=== PATIENT | male | born 1965 | race Caucasian/White ===

== ENCOUNTER → 2019-05-06 | Outpatient (CLI) | payer BC ==
--- NOTE | 2019-05-06 22:01 | CONS ---
CONSULTATION DATE OF SERVICE: 05/06/2019 54-year-old gentleman who has been [facility] for obstructive sleep apnea-hypopnea syndrome. HISTORY OF PRESENT ILLNESS/SLEEP WAKE EVALUATION: Patient had been diagnosed with obstructive sleep apnea more than 10 years ago. Since that time, he is on treatment with CPAP, then he had a period of time then he did not use the CPAP. Then he started to use it again. Last time he stopped using the CPAP several months ago because he lost some weight and also he developed some sneezing while using his CPAP equipment. 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 SLEEP SCHEDULE: Subsequently his sleep schedule on working days from 6:00 am until 1:20 pm and on weekends from 5:00 am until 12 noon. FALLING ASLEEP: No problems with falling asleep. No TV in bedroom. DURING SLEEP: Patient usually stays on the back position. Without machine he snores and wakes up from sleep with nocturia, although now it is better than before after he lost weight. He has episodes of heartburn. DURING THE DAY/SLEEP WAKE EVALUATION: In the morning patient wakes up tired, has difficulties to pay attention, has problems with memory, concentration, sexual dysfunction, and for sleepiness. Cowdrey Sleepiness Scale is 6. While patient using Nuvigil 200 mg taking it before the working hours for the mine shifter. No history of hypnagogic hallucinations, sleep paralysis or cataplexy. PAST MEDICAL HISTORY: Positive for hypertension, hypothyroidism, acid reflux, depression, anxiety, retinal detachment. PAST SURGICAL HISTORY: Surgery for right rotator cuff problems, left knee arthroscopic, retina detachment. CURRENT MEDICATIONS: Lamictal, Effexor, levothyroxine, lisinopril, omeprazole, Nuvigil, B12, fish oil, D3, multivitamins, vitamin E. SOCIAL HISTORY: Negative for smoking. Alcohol consumption occasional. FAMILY HISTORY: Hypertension, arthritis, sinus problems, sleep apnea, cancer, nasal polyps, thyroid problems, mental illness. REVIEW OF SYSTEMS: Awakenings from sleep, snoring, sleepiness during the day. I checked patient's CPAP unit. CPAP pressure is 8.2 cm of water. The patient did not use equipment for the last several months. For the last year, he used it 227 nights and 210 nights more than 4 hours with average usage 5.7 hours per night. Leak is quite high at 37 L/minute for nasal pillow mask. Apnea-hypopnea index reading only 1.3, which is normal. Again, the patient did not use machine for the last 4 months. PHYSICAL EXAM: A gentleman without distress BP 116/77, HR 82, RR 16, height 6 feet 1 inch, weight 206.6 pounds, body mass index 26.8, temperature 97.8, oxygen saturation at room air 98%. Oropharynx: Low position of soft palate, Mallampati 3-4. Some restriction of nasal breathing. Neck 16 inches in circumference. Deviation of right eye to the sight, decreased vision on the right side. NECK: Supple, no JVD. Thyroid is not palpable. LUNGS: Clear to percussion and to auscultation. Good air exchange. No wheezing or rhonchi. HEART: S1, S2 regular. No murmurs, gallops, or rubs. ABDOMEN: Soft and nontender. Bowel sounds are present. No organomegaly appreciated. EXTREMITIES: No clubbing or cyanosis. SALON ASSISTANT: Awake, alert, and oriented X3. Cranial nerves 2 to 7 intact. There is no fasciculation or atrophy. noted. No focal deficits observed. IMPRESSION: 1. History of obstructive sleep apnea for more than 10 years. The patient stopped using CPAP equipment about 4 months ago after losing weight with a trial of using machine developed sneezing, low position of soft palate, restriction of nasal breathing; obstructive sleep apnea-hypopnea syndrome. 2. Slight overweight presently, the patient lost about 30 pounds. 3. Hypertension. 4. Hypothyroidism. 5. Acid reflux. 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 7. Depression. 8. Anxiety. 9. Status post right rotator cuff surgery. 10.Left status post left knee arthroscopic surgery. 11.Status post surgery for retinal detachment on right eye. 12.Deviation of right eye to the sight, decreasing vision on the right side. PLAN: 1. Home sleep apnea test to confirm obstructive sleep apnea-hypopnea syndrome after losing weight. 2. Prescription for all necessary CPAP supplies including Maza FX nasal pillow mask, heated tube, filters and humidifier chamber. 3. Losing weight. 4. Sleep hygiene with regular time in bed for at least 7 and one half to 8 hours. 5. Precautions related to driving. No driving if feeling sleepiness. Thank you very much for referring this patient for consultation. Sincerely, Chandrakant Murillo MD, PhD, FAASM Diplomat of [place] [employer] [place] [employer] [facility] [place] MMROSANGELAL / ED: [id number] /
== END | disposition home or self-care (01) ==
LOC: SLEEP 13:32
PROVIDERS: ATTEND Internal Medicine
DX: G47.33 Obstructive sleep apnea (adult) (pediatric) (principal); R06.7 Sneezing; E66.3 Overweight; I10 Essential (primary) hypertension; E03.9 Hypothyroidism, unspecified; K21.9 Gastro-esophageal reflux disease without esophagitis; F41.8 Other specified anxiety disorders; H57.89 Other specified disorders of eye and adnexa; Z98.890 Other specified postprocedural states; Z68.26 Body mass index [BMI] 26.0-26.9, adult; Z79.899 Other long term (current) drug therapy; Z83.6 Family history of other diseases of the respiratory system
CPT/HCPCS: 99201

== ENCOUNTER 2019-07-26 02:28 | Inpatient (IN) | payer BC ==
[2019-07-26] MEDS ORDERED: FAMOTIDINE 20 MG/2 ML VIAL IV STA (02:52)
[2019-07-26] MEDS ORDERED: PANTOPRAZOLE 40 MG/10 ML VIAL IVP STA (02:52)
--- NOTE | 2019-07-26 02:52 | ED ---
GI Bleed HPI - General Chief complaint: GI Bleed Stated complaint: blood in stool Time Seen by Provider: 07/26/19 02:36 Source: patient, EMS Mode of arrival: EMS Limitations: no limitations - History of Present Illness Initial comments: This patient is 54-year-old man who presents to be evaluated for rectal bleeding. Patient states that around 11 PM he had a bowel movement with some dark red blood. Patient states she was not having abdominal pain nor any perianal pain. Denies history of similar. MD complaint: melena Onset/Timin -: hour(s) Quality: painless Improves with: none Worsens with: none Associated Symptoms: denies other symptoms Treatments Prior to Arrival: none - Related Data Allergies Allergy/AdvReac Type Severity Reaction Status Date / Time No Known Allergies Allergy Verified 07/26/19 02:39 Review of Systems ROS Statement: Those systems with pertinent positive or pertinent negative responses have been documented in the HPI. ROS Other: All systems not noted in ROS Statement are negative. Constitutional: Denies: fever, chills Respiratory: Denies: cough, dyspnea Cardiovascular: Denies: chest pain, palpitations, orthopnea, syncope Gastrointestinal: Reports: melena. Denies: abdominal pain, nausea, vomiting, diarrhea, constipation, hematochezia Genitourinary: Denies: dysuria, hematuria Musculoskeletal: Denies: back pain Skin: Denies: rash Neurological: Denies: headache, weakness Hematological/Lymphatic: Denies: easy bleeding Past Medical History Past Medical History: GERD/Reflux, Hypertension, Thyroid Disorder History of Any Multi-Drug Resistant Organisms: None Reported Past Surgical History: Orthopedic Surgery Additional Past Surgical History / Comment(s): right eye surgery Past Psychological History: Anxiety, Depression Smoking Status: Former smoker Past Alcohol Use History: None Reported Past Drug Use History: None Reported General Exam Limitations: no limitations General appearance: alert, in no apparent distress Head exam: Present: atraumatic, normocephalic Eye exam: Present: normal appearance. Absent: scleral icterus, conjunctival injection ENT exam: Present: normal oropharynx Neck exam: Present: normal inspection Respiratory exam: Present: normal lung sounds bilaterally. Absent: respiratory distress, wheezes, rales, rhonchi, stridor Cardiovascular Exam: Present: regular rate, normal rhythm, normal heart sounds. Absent: systolic murmur, diastolic murmur, rubs, gallop GI/Abdominal exam: Present: soft. Absent: distended, tenderness, guarding, rebound, rigid, mass, pulsatile mass Rectal exam: Present: normal inspection, normal rectal tone, bloody stool, normal prostate. Absent: fecal impaction, hemorrhoids, mass, tenderness Extremities exam: Present: normal inspection, normal capillary refill. Absent: pedal edema, calf tenderness Back exam: Present: normal inspection. Absent: CVA tenderness (R), CVA tenderness (L) Neurological exam: Present: alert Skin exam: Present: warm, dry, intact, normal color. Absent: rash Course Vital Signs 07/26/19 02:29 Temperature 98.6 F Pulse Rate 90 Respiratory 19 Rate Blood Pressure 113/79 O2 Sat by Pulse 98 Oximetry Medical Decision Making - Lab Data Result diagrams: 07/26/19 02:33 07/26/19 02:33 Lab Results 07/26/19 07/26/19 07/26/19 Range/Units 02:33 02:33 02:33 WBC 6.1 (3.8-10.6) k/uL RBC 3.98 L (4.30-5.90) m/uL Hgb 12.2 L (13.0-17.5) gm/dL Hct 35.4 L (39.0-53.0) % MCV 88.8 (80.0-100.0) fL MCH 30.7 (25.0-35.0) pg MCHC 34.5 (31.0-37.0) g/dL RDW 12.7 (11.5-15.5) % Plt Count 174 (150-450) k/uL Neutrophils % 62 % Lymphocytes % 27 % Monocytes % 6 % Eosinophils % 3 % Basophils % 1 % Neutrophils # 3.8 (1.3-7.7) k/uL Lymphocytes # 1.6 (1.0-4.8) k/uL Monocytes # 0.4 (0-1.0) k/uL Eosinophils # 0.2 (0-0.7) k/uL Basophils # 0.0 (0-0.2) k/uL PT 11.6 (9.0-12.0) sec INR 1.1 (<1.2) APTT 20.8 L (22.0-30.0) sec Sodium 132 L (137-145) mmol/L Potassium 4.2 (3.5-5.1) mmol/L Chloride 103 (98-107) mmol/L Carbon Dioxide 22 (22-30) mmol/L Anion Gap 7 mmol/L BUN 37 H (9-20) mg/dL Creatinine 0.85 (0.66-1.25) mg/dL Est GFR (CKD-EPI)AfAm >90 (>60 ml/min/1.73 sqM) Est GFR (CKD-EPI)NonAf >90 (>60 ml/min/1.73 sqM) Glucose 153 H (74-99) mg/dL Calcium 8.1 L (8.4-10.2) mg/dL Total Bilirubin 0.4 (0.2-1.3) mg/dL AST 23 (17-59) U/L ALT 16 (4-49) U/L Alkaline Phosphatase 47 (38-126) U/L Troponin I (0.000-0.034) ng/mL Total Protein 5.5 L (6.3-8.2) g/dL Albumin 3.2 L (3.5-5.0) g/dL Stool Occult Blood (Negative) 07/26/19 07/26/19 Range/Units 02:33 02:45 WBC (3.8-10.6) k/uL RBC (4.30-5.90) m/uL Hgb (13.0-17.5) gm/dL Hct (39.0-53.0) % MCV (80.0-100.0) fL MCH (25.0-35.0) pg MCHC (31.0-37.0) g/dL RDW (11.5-15.5) % Plt Count (150-450) k/uL Neutrophils % % Lymphocytes % % Monocytes % % Eosinophils % % Basophils % % Neutrophils # (1.3-7.7) k/uL Lymphocytes # (1.0-4.8) k/uL Monocytes # (0-1.0) k/uL Eosinophils # (0-0.7) k/uL Basophils # (0-0.2) k/uL PT (9.0-12.0) sec INR (<1.2) APTT (22.0-30.0) sec Sodium (137-145) mmol/L Potassium (3.5-5.1) mmol/L Chloride (98-107) mmol/L Carbon Dioxide (22-30) mmol/L Anion Gap mmol/L BUN (9-20) mg/dL Creatinine (0.66-1.25) mg/dL Est GFR (CKD-EPI)AfAm (>60 ml/min/1.73 sqM) Est GFR (CKD-EPI)NonAf (>60 ml/min/1.73 sqM) Glucose (74-99) mg/dL Calcium (8.4-10.2) mg/dL Total Bilirubin (0.2-1.3) mg/dL AST (17-59) U/L ALT (4-49) U/L Alkaline Phosphatase (38-126) U/L Troponin I <0.012 (0.000-0.034) ng/mL Total Protein (6.3-8.2) g/dL Albumin (3.5-5.0) g/dL Stool Occult Blood Positive (Negative) Disposition Clinical Impression: Gastrointestinal hemorrhage, Anemia Disposition: ADMITTED IP TO THIS HOSP Condition: Good Is patient prescribed a controlled substance at d/c from ED?: No Referrals: Dm Brown MD [Primary Care Provider] - 1-2 days
[2019-07-26 03:13] LABS: Basophils % (A) 1 %; Eosinophils # (A) 0.2 k/uL (0-0.7); Eosinophils % (A) 3 %; HCT 35.4 % (39.0-53.0); HGB 12.2 gm/dL (13.0-17.5); Lymphocytes # (A) 1.6 k/uL (1.0-4.8); Lymphocytes % (A) 27 %; MCH 30.7 pg (25.0-35.0); MCHC 34.5 g/dL (31.0-37.0); MCV 88.8 fL (80.0-100.0); Mean Platelet Volume 9.7; Monocytes # (A) 0.4 k/uL (0-1.0); Monocytes % (A) 6 %; Neutrophils # (A) 3.8 k/uL (1.3-7.7); Neutrophils % (A) 62 %; Platelet Count 174 k/uL (150-450); RBC 3.98 m/uL (4.30-5.90); RDW 12.7 % (11.5-15.5); WBC 6.1 k/uL (3.8-10.6)
[2019-07-26 03:24] LABS: INR 1.1 (<1.2); Prothrombin Time 11.6 sec (9.0-12.0)
[2019-07-26 03:36] LABS: Partial Thromboplastin Time 20.8 sec (22.0-30.0)
[2019-07-26 03:43] LABS: ALT 16 U/L (4-49); AST 23 U/L (17-59); African American GFR (CKD) >90 (>60 ml/min/1.73 sqM); Albumin 3.2 g/dL (3.5-5.0); Alkaline Phosphatase 47 U/L (38-126); Anion Gap 7 mmol/L; Blood Urea Nitrogen 37 mg/dL (9-20); Calcium 8.1 mg/dL (8.4-10.2); Carbon Dioxide 22 mmol/L (22-30); Chloride 103 mmol/L (98-107); Glucose 153 mg/dL (74-99); Non-African American GFR(CKD) >90 (>60 ml/min/1.73 sqM); Potassium 4.2 mmol/L (3.5-5.1); Sodium 132 mmol/L (137-145); Total Bilirubin 0.4 mg/dL (0.2-1.3); Total Protein 5.5 g/dL (6.3-8.2)
[2019-07-26] MEDS ORDERED: ONDANSETRON 4 MG/2 ML VIAL IVP PRN (04:21)
[2019-07-26] MEDS ORDERED: NALOXONE 0.4 MG/ML 1 ML VIAL IV PRN (04:21)
[2019-07-26] MEDS ORDERED: ACETAMINOPHEN TAB 325 MG TAB PO PRN (04:21)
[2019-07-26] MEDS: SODIUM CHLORIDE 0.9% 1,000 ML IV SCH ×3 (04:35→20:21)
--- NOTE | 2019-07-26 06:41 | P.HPIM ---
History of Present Illness H&P Date: 07/26/19 Chief Complaint: Rectal bleeding 54-year-old male with hypertension, RYAN Patient comes in due to sudden onset GI bleeding patient noticed dark bloody bowel movement. he reports short lived one episode of abd pain , right loin sharp discomfort , 8/10 in severity non radiating, only felt once. 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 after which he felt dizzy and sweaty and decided to come to the hospital . he had another episode of bleeding this morning after he arrived to the floor. . Reports that this has never happened before. Denies any nausea vomiting . Denies being on any blood thinners. or NSAIDs. Denies any recent changes in his medications. Patient denies any fevers chills chest pain or trou ble breathing or palpitations. In the ED patient was found to be mild anemia admitted for further evaluation Review of Systems Pertinent positives as noted in HPI. All other systems were reviewed and are negative Past Medical History Past Medical History: GERD/Reflux, Hypertension, Thyroid Disorder History of Any Multi-Drug Resistant Organisms: None Reported Past Surgical History: Orthopedic Surgery Additional Past Surgical History / Comment(s): right eye surgery Past Anesthesia/Blood Transfusion Reactions: No Reported Reaction Past Psychological History: Anxiety, Depression Smoking Status: Never smoker Past Alcohol Use History: None Reported Past Drug Use History: None Reported - Past Family History family Family Medical History: No Reported History Medications and Allergies Allergies Allergy/AdvReac Type Severity Reaction Status Date / Time No Known Allergies Allergy Verified 07/26/19 02:39 Physical Exam Vitals: Vital Signs Temp Pulse Pulse Resp BP BP Pulse Ox 07/26/19 05:29 98.7 F 79 18 100/66 97 07/26/19 04:27 97.5 F L 86 17 119/76 98 07/26/19 02:29 98.6 F 90 19 113/79 98 Intake and Output 07/25/19 07/25/19 07/26/19 14:59 22:59 06:59 Other: Weight 96.615 kg Constitutional: No acute distress, conversant, pleasant Eyes: Anicteric sclerae, moist conjunctiva, Pupils equal round reactive to light ENMT: NC/AT Oropharynx clear, no erythema, or exudates Neck: Supple, FROM, no masses, or JVD No carotid bruits No thyromegaly Lungs: Clear to auscultation Clear to percussion Normal respiratory effort, no accessory muscle use Cardiovascular: Heart regular in rate and rhythm, No murmurs, gallops, or rubs No peripheral edema Abdominal: Soft Nontender, no guarding, rebound or rigidity Abdomen moving with respiration Normoactive bowel sounds No hepatomegaly, No splenomegaly No palpable mass No abdominal wall hernia noted Skin: Normal temperature, tone, texture, turgor No induration No subcutaneous nodules No rash, lesions No ulcers Extremities: No digital cyanosis No clubbing Pedal pulses intact and symmetrical Radial pulses intact and symmetrical No calf tenderness Psychiatric: Alert and oriented to person, place and time Appropriate affect fair judgement Neuro Muscles Strength 5/5 in all 4 extremities Sensation to light touch grossly present throughout Cranial nerves II-XII grossly intact No focal sensory deficits Lymphatics: no palpable cervical or supraclavicular , or inguinal lymph nodes Results CBC & Chem 7: 07/26/19 02:33 07/26/19 02:33 Labs: Abnormal Lab Results - Last 24 Hours (Table) 07/26/19 07/26/19 07/26/19 Range/Units 02:33 02:33 02:33 RBC 3.98 L (4.30-5.90) m/uL Hgb 12.2 L (13.0-17.5) gm/dL Hct 35.4 L (39.0-53.0) % APTT 20.8 L (22.0-30.0) sec Sodium 132 L (137-145) mmol/L BUN 37 H (9-20) mg/dL Glucose 153 H (74-99) mg/dL Calcium 8.1 L (8.4-10.2) mg/dL Total Protein 5.5 L (6.3-8.2) g/dL Albumin 3.2 L (3.5-5.0) g/dL Thrombosis Risk Factor Assmnt - Choose All That Apply Each Factor Represents 1 point: Age 41-60 years Thrombosis Risk Factor Assessment Total Risk Factor Score: 1 Thrombosis Risk Factor Assessment Level: Low Risk Assessment and Plan Assessment: 54-year-old male with hypertension, obstructive sleep apnea, comes in with sudden onset GI bleeding, patient was found to have mild anemia admitted for further evaluation anticipated length of stay more than 2 midnights Acute GI bleeding Acute anemia secondary to GI bleeding Supportive care Nothing by mouth IV fluid hydration PPI twice a day GI consult h&H q6hr blood transfusion if Hgb drops below 8 or symptomatic anemia Chronic conditions Obstructive sleep apnea Hypertension on lisinopril Resume home meds Verify home meds CODE STATUS full code DVT prophylaxis: mechanical 2/2 gi bleeding Discussed with: Patient, ER, RN Anticipated length of stay > than [address]: home A total of 75 minutes was spent on the care of this complex patient more than 50% of the time was spent in counseling and care coordination.
[2019-07-26] MEDS: PANTOPRAZOLE 40 MG/10 ML VIAL IV SCH ×2 (08:35→20:20)
[2019-07-26] MEDS ORDERED: PANTOPRAZOLE 40 MG/10 ML VIAL IV SCH (09:00)
[2019-07-26 11:26] LABS: HCT 37.1 % (39.0-53.0); MCH 28.9 pg (25.0-35.0); MCHC 32.3 g/dL (31.0-37.0); MCV 89.5 fL (80.0-100.0); Mean Platelet Volume 9.8; Platelet Count 181 k/uL (150-450); RBC 4.14 m/uL (4.30-5.90); RDW 12.8 % (11.5-15.5); WBC 8.8 k/uL (3.8-10.6)
[2019-07-26] MEDS: VENLAFAXINE HCL ER 150 MG CAP PO SCH (12:14)
--- NOTE | 2019-07-26 17:06 | P.PN ---
Subjective Progress Note Date: 07/26/19 (delayed charting seen at 0930) Principal diagnosis: Dark Tarry stools Patient is a 54-year-old male with GERD, hypertension, and hypothyroidism who presented to the emergency department secondary to abdominal pain and dark tarry stools. In the emergency department he underwent an extensive evaluation. His initial vital signs within normal limits. Initial laboratory analysis showed hemoglobin 12.2, PTT 20.8, sodium 132, BUN 37, glucose 153, and occult blood was positive. He had an additional dark tarry stool in the emergency department. Arrangements are made for admission for possible GI bleed. He was given IV PPI. GI was consulted. Patient seen and examined at bedside. He had one additional dark tarry bowel movement after arrival to the floor. He denies any abdominal pain, chest pain, shortness of breath, nausea, or vomiting. He does admit to presyncope at home with his initial dark tarry bowel movement. He had a colonoscopy approximately one year ago by [facility] and [facility] and states he was not due for another one for 10 years. He denies any recent NSAID use. He has no history of GI bleed. Objective - Vital Signs Vital signs: Vital Signs Temp 98.0 F 07/26/19 14:48 Pulse 81 07/26/19 16:19 Resp 16 07/26/19 16:19 BP 121/78 07/26/19 14:48 Pulse Ox 99 07/26/19 14:48 Intake & Output 07/25/19 07/26/19 07/26/19 18:59 06:59 18:59 Intake Total 875 Balance 875 Weight 96.615 kg Intake: Intake, IV Titration 875 Amount Sodium Chloride 0.9% 1, 875 000 ml @ 125 mls/hr IV . Q8H [facility] Rx#:[id number] Other: Voiding Method Toilet - Exam General: non toxic, no distress, appears at stated age Derm: warm, dry Head: atraumatic, normocephalic, symmetric Eyes: EOMI, no lid lag, anicteric sclera Mouth: no lip lesion, mucus membranes moist Cardiovascular: S1S2 reg, no murmur, positive posterior tibial pulse bilateral, Lungs: CTA bilateral, no rhonchi, no rales , no accessory muscle use Abdominal: soft, nontender to palpation, no guarding, no appreciable organomegaly Ext: no gross muscle atrophy, no edema, no contractures Neuro: CN II-XI grossly intact, no focal neuro deficits Psych: Alert, oriented, appropriate affect - Labs CBC & Chem 7: 07/26/19 11:15 07/26/19 02:33 Labs: Abnormal Lab Results - Last 24 Hours (Table) 07/26/19 07/26/19 07/26/19 Range/Units 02:33 02:33 02:33 RBC 3.98 L (4.30-5.90) m/uL Hgb 12.2 L (13.0-17.5) gm/dL Hct 35.4 L (39.0-53.0) % APTT 20.8 L (22.0-30.0) sec Sodium 132 L (137-145) mmol/L BUN 37 H (9-20) mg/dL Glucose 153 H (74-99) mg/dL Calcium 8.1 L (8.4-10.2) mg/dL Total Protein 5.5 L (6.3-8.2) g/dL Albumin 3.2 L (3.5-5.0) g/dL 07/26/19 Range/Units 11:15 RBC 4.14 L (4.30-5.90) m/uL Hgb 12.0 L (13.0-17.5) gm/dL Hct 37.1 L (39.0-53.0) % APTT (22.0-30.0) sec Sodium (137-145) mmol/L BUN (9-20) mg/dL Glucose (74-99) mg/dL Calcium (8.4-10.2) mg/dL Total Protein (6.3-8.2) g/dL Albumin (3.5-5.0) g/dL Assessment and Plan Assessment: GI bleed with acute blood loss anemia -Serial hemoglobin -Consult GI -IV PPI twice a day -Avoid NSAID-containing products -Nothing by mouth -IV fluids -Check ferritin and iron studies -No indications for transfusion Hypertension, controlled on arrival -Lisinopril on hold due to GI bleed -Follow blood pressures -Plan to resume the morning if BP stable Hypothyroidism -Synthroid Sleep work shift disorder -Hold home medication Obstructive sleep apnea DVT prophylaxis: SCDs Discussed with: Patient, nursing Anticipated discharge: 1-[address]: home A total of 25 minutes was spent on the care of this complex patient more than 50% of the time was spent in counseling and care coordination.
[2019-07-26 18:43] LABS: HGB 11.8 gm/dL (13.0-17.5); MCH 30.2 pg (25.0-35.0); MCHC 33.6 g/dL (31.0-37.0); MCV 89.9 fL (80.0-100.0); Mean Platelet Volume 9.6; Platelet Count 156 k/uL (150-450); RBC 3.89 m/uL (4.30-5.90); RDW 12.9 % (11.5-15.5); WBC 7.6 k/uL (3.8-10.6)
[2019-07-26] MEDS: lamoTRIgine 100 MG TAB PO SCH (20:20)
--- NOTE | 2019-07-27 05:51 | P.CONS ---
History of Present Illness - Reason for Consult Consult date: 07/26/19 GI bleed Requesting physician: Kaila Torrez - Chief Complaint Abdominal pain, melena - History of Present Illness 54-year-old male with a medical history significant for hypothyroidism, hypertension and GERD who presented due to complaints of abdominal pain and dark stool. The patient reports 2 hours of sharp right abdominal and right flank pain prior to presentation. He denies any prior episodes of similar complaints. He reports associated melena on 2 occasions described as dark colored stool, thick in consistency. Patient also reports some dizziness and lightheadedness with the episode. Denies any prior history of GI bleed. No NSAID use and he reports Tylenol use as needed for pain. Stool testing on presentation positive for occult blood. He reports his last colonoscopy approximately 2 years ago and essentially normal with the patient told he did have repeat colonoscopy in 10 years at that time. Hemoglobin was normal presentation at 12.2 subsequently found to be 12 with a WBC 6.1 and platelet count of 174,000 and INR of 1.1. Denies any blood thinner/anticoagulation use. Review of Systems REVIEW OF SYSTEMS: CONSTITUTIONAL: Denies any fevers, chills, weight change or fatigue. CARDIOVASCULAR: Denies any chest pain, palpitations high or low blood pressures RESPIRATORY: Denies any shortness of breath, hemoptysis or cough. GENITOURINARY: No dysuria or hematuria. MUSCULOSKELETAL: No weakness reported. SKIN: Denies any new rashes or lesions, jaundice or pallor. PSYCHIATRIC: Denies any depression or anxiety. NEUROLOGY: Denies headache, denies any new focal deficits. EARS/NOSE/THROAT: No recent hearing change, congestion, nasal discharge or sore throat. EYES: No pain in eyes, discharge or change in vision. GASTROINTESTINAL: As per HPI. Past Medical History Past Medical History: GERD/Reflux, Hypertension, Thyroid Disorder History of Any Multi-Drug Resistant Organisms: None Reported Past Surgical History: Orthopedic Surgery Additional Past Surgical History / Comment(s): right eye surgery Past Anesthesia/Blood Transfusion Reactions: No Reported Reaction Past Psychological History: Anxiety, Depression Smoking Status: Never smoker Past Alcohol Use History: None Reported Past Drug Use History: None Reported - Past Family History family Family Medical History: No Reported History Medications and Allergies Home Medications Medication Instructions Recorded Confirmed Type Armodafinil 200 mg PO QAM 07/26/19 07/26/19 History Cholecalciferol [Vitamin D3 (25 5,000 unit PO DAILY 07/26/19 07/26/19 History Mcg = 1000 Iu)] Cyanocobalamin (Vitamin B-12) 1,000 mcg PO DAILY 07/26/19 07/26/19 History [Vitamin B-12] Fish Oil/Dha/Epa [Fish Oil 1,200 1 cap PO DAILY 07/26/19 07/26/19 History mg Fish Oil] Levothyroxine Sodium [Synthroid] 50 mcg PO DAILY 07/26/19 07/26/19 History Lisinopril [Zestril] 20 mg PO DAILY 07/26/19 07/26/19 History Multivitamins, Thera [Multivitamin 1 tab PO DAILY 07/26/19 07/26/19 History (formulary)] Omeprazole 20 mg PO DAILY 07/26/19 07/26/19 History Tadalafil 20 mg PO DAILY PRN 07/26/19 07/26/19 History Venlafaxine HCl ER [Effexor Xr] 150 mg PO DAILY 07/26/19 07/26/19 History Vitamin E 400 unit PO DAILY 07/26/19 07/26/19 History lamoTRIgine 100 mg PO BID 07/26/19 07/26/19 History Allergies Allergy/AdvReac Type Severity Reaction Status Date / Time No Known Allergies Allergy Verified 07/26/19 07:40 Physical Exam Vitals: Vital Signs Temp Pulse Pulse Resp BP BP Pulse Ox 07/26/19 14:48 98.0 F 81 16 121/78 99 07/26/19 08:34 80 16 07/26/19 08:08 97.8 F 80 16 112/73 98 07/26/19 05:29 98.7 F 79 18 100/66 97 07/26/19 04:27 97.5 F L 86 17 119/76 98 07/26/19 02:29 98.6 F 90 19 113/79 98 Intake and Output 07/26/19 07/26/19 07/26/19 06:59 14:59 22:59 Intake Total 875 Balance 875 Intake: Intake, IV Titration 875 Amount Sodium Chloride 0.9% 1, 875 000 ml @ 125 mls/hr IV . Q8H [facility] Rx#:[id number] Other: Voiding Method Toilet Weight 96.615 kg On physical examination, patient appears comfortable in no apparent distress. HEAD: Normocephalic, atraumatic. EYES: No scleral icterus. No conjunctival injection. MOUTH: No lesions, tongue midline. NECK: Trachea midline, no gross abnormalities. CHEST: Clear to auscultation with no wheezing or rhonchi appreciated. HEART: Regular rate and rhythm. ABDOMEN: Soft, nontender to palpation. Bowel sounds are positive. No organomegaly. No guarding or rigidity. EXTREMITIES: No pedal edema. SKIN: No rashes, no jaundice. NEUROLOGIC: Alert and oriented x3. No focal deficits. Results CBC & Chem 7: 07/26/19 18:28 07/26/19 02:33 Labs: Abnormal Lab Results - Last 24 Hours (Table) 07/26/19 07/26/19 07/26/19 Range/Units 02:33 02:33 02:33 RBC 3.98 L (4.30-5.90) m/uL Hgb 12.2 L (13.0-17.5) gm/dL Hct 35.4 L (39.0-53.0) % APTT 20.8 L (22.0-30.0) sec Sodium 132 L (137-145) mmol/L BUN 37 H (9-20) mg/dL Glucose 153 H (74-99) mg/dL Calcium 8.1 L (8.4-10.2) mg/dL Total Protein 5.5 L (6.3-8.2) g/dL Albumin 3.2 L (3.5-5.0) g/dL 07/26/19 Range/Units 11:15 RBC 4.14 L (4.30-5.90) m/uL Hgb 12.0 L (13.0-17.5) gm/dL Hct 37.1 L (39.0-53.0) % APTT (22.0-30.0) sec Sodium (137-145) mmol/L BUN (9-20) mg/dL Glucose (74-99) mg/dL Calcium (8.4-10.2) mg/dL Total Protein (6.3-8.2) g/dL Albumin (3.5-5.0) g/dL Assessment and Plan (1) Melena Narrative/Plan: 54 yo male who presented to the hospital with complaints of abdominal pain and dark-colored stool. He did have stool testing which was positive for occult blood. Denies any prior history of GI bleed but does have a history of GERD on omeprazole therapy. No NSAID use. He did have a colonoscopy approximately 2 years ago which was essentially normal per his report. Did have a further episode of dark-colored stool after presentation but hemoglobin has remained stable at 12 from 12.2 on presentation. No anticoagulation use. Unclear etiology with differential including peptic ulcer disease, gastritis, esophagitis, AVM or other etiology. Current Visit: Yes Status: Acute Code(s): K92.1 - MELENA SNOMED Code(s): 5876452 (2) Stool guaiac positive Current Visit: Yes Status: Acute Code(s): R19.5 - OTHER FECAL ABNORMALITIES SNOMED Code(s): 25416746 Plan: Supportive care Okay for diet Nothing by mouth after midnight Continue Protonix 40 mg twice daily Iron studies ordered by primary team Avoid NSAID use We'll anticoagulation Plan for EGD tomorrow for further evaluation, patient will like to hold off on colonoscopic evaluation at this time given absence of any findings from last evaluation approximately 2 years ago Further recommendations pending findings of EGD Continue to monitor hemoglobin and hematocrit and transfuse as needed Thank you for allowing us to participate in the care of the patient
[2019-07-27] MEDS: LEVOTHYROXINE 50 MCG TAB PO SCH (06:24)
[2019-07-27] MEDS: SODIUM CHLORIDE 0.9% 1,000 ML IV SCH ×3 (06:24→20:34)
[2019-07-27] MEDS: lamoTRIgine 100 MG TAB PO SCH ×2 (08:24→20:33)
[2019-07-27] MEDS: PANTOPRAZOLE 40 MG/10 ML VIAL IV SCH ×2 (08:24→20:32)
[2019-07-27] MEDS: VENLAFAXINE HCL ER 150 MG CAP PO SCH (08:24)
[2019-07-27] MEDS ORDERED: NON FORMULARY DRUG (Fish Oil/Dha/Epa [Fish Oil 1,200 Mg Fish Oil] 1 CAP) PO SCH (09:00)
[2019-07-27] MEDS: VITAMIN E (DL,TOCOPHERYL ACET) 400 UNIT CAP PO SCH (09:53)
[2019-07-27] MEDS: MULTIVITAMINS, THERA 1 EACH TAB PO SCH (09:53)
[2019-07-27] MEDS: CYANOCOBALAMIN 500 MCG TAB PO SCH (09:53)
[2019-07-27 12:12] LABS: % Iron Saturation 48.99 (15.00-50.00)
[2019-07-27 12:21] LABS: Ferritin 32.9 ng/mL (22.0-322.0)
[2019-07-27] MEDS ORDERED: KETOROLAC 30 MG/ML 1 ML VIAL IVP STA (12:38)
[2019-07-27] MEDS ORDERED: PROPOFOL 10 MG/ML 20 ML VIAL IV ONE (12:44)
[2019-07-27] MEDS ORDERED: IV FLUID CONTINUATION 1,000 ML IV ONE ×2 (12:46)
--- NOTE | 2019-07-27 13:03 | P.PCN ---
Date of Procedure: 07/27/19 Description of Procedure: BRIEF HISTORY: 54-year-old male with a medical history significant for hypothyroidism, hypertension and GERD who presented due to complaints of abdominal pain and dark stool. The patient reports 2 hours of sharp right abdominal and right flank pain prior to presentation. He denies any prior episodes of similar complaints. He reports associated melena on 2 occasions described as dark colored stool, thick in consistency. Patient also reports some dizziness and lightheadedness with the episode. Denies any prior history of GI bleed. No NSAID use and he reports Tylenol use as needed for pain. Stool testing on presentation positive for occult blood. He reports his last colonoscopy approximately 2 years ago and essentially normal with the patient told he did have repeat colonoscopy in 10 years at that time. Hemoglobin was normal presentation at 12.2 subsequently found to be 12 with a WBC 6.1 and platelet count of 174,000 and INR of 1.1. Denies any blood thinner/anticoagulation use. PROCEDURE PERFORMED: Esophagogastroduodenoscopy with biopsy. PREOPERATIVE DIAGNOSIS: Melena, stool positive for occult blood. ESTIMATED BLOOD LOSS: Minimal. IV sedation per anesthesia. PROCEDURE: After informed consent was obtained, the patient was brought into the endoscopy unit. IV sedation was administered by Anesthesia under continuous monitoring. Initially the Olympus GIF-190 video endoscope was inserted into the mouth. Esophagus intubated without any difficulty. It was gradually advanced into the stomach and duodenum and carefully examined. The bulb and the second part of the duodenum appeared normal, with biopsies taken. The scope at this time was withdrawn to the stomach, adequately insufflated with air, and upon careful examination, mucosa of the antrum, body, cardia and the fundus appeared normal, except for some mild scattered erythema in the antrum and body suggestive of mild gastritis with biopsies taken. A diminutive gastric polyp likely representing a fundic gland polyp was biopsied . The scope was then withdrawn into the esophagus. The GE junction was located at 39 cm from the incisors. The esophagus appeared normal. There were no erosions or ulcerations seen and the patient tolerated the procedure well. IMPRESSION: 1. Mild gastritis antrum and body, biopsied . 2. Gastric polyp, biopsied. 3. Duodenal biopsies. RECOMMENDATIONS: The findings of this examination were discussed with the patient. Okay to resume clear liquid diet. Continue to monitor hemoglobin and hematocrit and transfuse as needed. Await pathology from biopsies. Discussion with the patient would like to proceed with colonoscopy at this time for further evaluation.
[2019-07-27] MEDS ORDERED: PEG 3350-NA SULF,BICARB,CL/KCL 4,000 ML BOTTLE PO ONE (16:00)
--- NOTE | 2019-07-27 16:00 | P.PN ---
Subjective Progress Note Date: 07/27/19 (delayed charting seen at 1030) Principal diagnosis: Dark Tarry stools Patient is a 54-year-old male with GERD, hypertension, and hypothyroidism who presented to the emergency department secondary to abdominal pain and dark tarry stools. In the emergency department he underwent an extensive evaluation. His initial vital signs within normal limits. Initial laboratory analysis showed hemoglobin 12.2, PTT 20.8, sodium 132, BUN 37, glucose 153, and occult blood was positive. He had an additional dark tarry stool in the emergency department. Arrangements are made for admission for possible GI bleed. He was given IV PPI. GI was consulted.They recommended EGD which showed gastritis and a gastric polyp. Hemoglobin remained stable. Patient seen and examined at bedside. One additional dark and tarry bowel movement overnight. No chest pain, shortness breath, nausea, vomiting, or lightheadedness. No abdominal pain. Objective - Vital Signs Vital signs: Vital Signs Temp 98.4 F 07/27/19 15:00 Pulse 71 07/27/19 15:00 Resp 16 07/27/19 15:00 BP 110/66 07/27/19 15:00 Pulse Ox 98 07/27/19 15:00 Intake & Output 07/26/19 07/27/19 07/27/19 18:59 06:59 18:59 Intake Total 875 1900 1125 Output Total 100 Balance 875 1800 1125 Intake: IV 250 Intake, IV Titration 875 1500 875 Amount Sodium Chloride 0.9% 1, 875 1500 875 000 ml @ 125 mls/hr IV . Q8H [facility] Rx#:[id number] Oral 400 Output: Stool 100 Other: Voiding Method Toilet Toilet Toilet # Bowel Movements 1 - Exam General: non toxic, no distress, appears at stated age Head: atraumatic, normocephalic, symmetric Eyes: EOMI, no lid lag, anicteric sclera Mouth: no lip lesion, mucus membranes dry Cardiovascular: S1S2 reg, no murmur, positive posterior tibial pulse bilateral, Lungs: CTA bilateral, no rhonchi, no rales , no accessory muscle use Abdominal: soft, nontender to palpation, no guarding, no appreciable organomegaly Ext: no gross muscle atrophy, no edema, no contractures Neuro: CN II-XI grossly intact, no focal neuro deficits Psych: Alert, oriented, appropriate affect - Labs CBC & Chem 7: 07/26/19 18:28 07/26/19 02:33 Labs: Abnormal Lab Results - Last 24 Hours (Table) 07/26/19 Range/Units 18:28 RBC 3.89 L (4.30-5.90) m/uL Hgb 11.8 L (13.0-17.5) gm/dL Hct 35.0 L (39.0-53.0) % Assessment and Plan Assessment: GI bleed with acute blood loss anemia and iron deficiency anemia - EGD with gastritis -follow HgB -GI Recs appreciated -IV PPI twice a day with plan for PO on discharge - Avoid NSAID-containing products - clear liquid diet before midnight then NPO -IV fluids - ferritin and iron studies consistent with iron deficiency anemia. 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
[2019-07-27 16:04] LABS: HGB 10.2 gm/dL (13.0-17.5); MCH 29.6 pg (25.0-35.0); MCHC 32.8 g/dL (31.0-37.0); MCV 90.3 fL (80.0-100.0); Mean Platelet Volume 10.4; Platelet Count 130 k/uL (150-450); RBC 3.43 m/uL (4.30-5.90); RDW 12.9 % (11.5-15.5); WBC 5.2 k/uL (3.8-10.6)
[2019-07-27] MEDS ORDERED: BISACODYL 5 MG TABLET.DR PO ONE (18:00)
[2019-07-27 20:29] LABS: Basophils % (A) 1 %; Eosinophils # (A) 0.2 k/uL (0-0.7); Eosinophils % (A) 3 %; HCT 30.8 % (39.0-53.0); HGB 10.6 gm/dL (13.0-17.5); Lymphocytes # (A) 1.3 k/uL (1.0-4.8); Lymphocytes % (A) 27 %; MCH 31.2 pg (25.0-35.0); MCHC 34.5 g/dL (31.0-37.0); MCV 90.5 fL (80.0-100.0); Mean Platelet Volume 8.8; Monocytes # (A) 0.3 k/uL (0-1.0); Monocytes % (A) 7 %; Neutrophils # (A) 2.9 k/uL (1.3-7.7); Neutrophils % (A) 61 %; Platelet Count 150 k/uL (150-450); RBC 3.41 m/uL (4.30-5.90); RDW 12.9 % (11.5-15.5); WBC 4.8 k/uL (3.8-10.6)
[2019-07-28] MEDS: SODIUM CHLORIDE 0.9% 1,000 ML IV SCH ×3 (05:36→20:38)
[2019-07-28] MEDS: LEVOTHYROXINE 50 MCG TAB PO SCH (05:37)
[2019-07-28] MEDS: MULTIVITAMINS, THERA 1 EACH TAB PO SCH (07:48)
[2019-07-28] MEDS: CYANOCOBALAMIN 500 MCG TAB PO SCH (07:48)
[2019-07-28] MEDS: lamoTRIgine 100 MG TAB PO SCH ×2 (07:48→20:38)
[2019-07-28] MEDS: PANTOPRAZOLE 40 MG/10 ML VIAL IV SCH (07:49)
[2019-07-28] MEDS: VITAMIN E (DL,TOCOPHERYL ACET) 400 UNIT CAP PO SCH (07:52)
[2019-07-28] MEDS: VENLAFAXINE HCL ER 150 MG CAP PO SCH (07:53)
[2019-07-28 08:43] LABS: Basophils % (A) 1 %; Eosinophils # (A) 0.2 k/uL (0-0.7); Eosinophils % (A) 4 %; HCT 28.3 % (39.0-53.0); HGB 9.5 gm/dL (13.0-17.5); Lymphocytes # (A) 1.2 k/uL (1.0-4.8); Lymphocytes % (A) 32 %; MCH 29.7 pg (25.0-35.0); MCHC 33.4 g/dL (31.0-37.0); MCV 88.8 fL (80.0-100.0); Mean Platelet Volume 8.9; Monocytes # (A) 0.3 k/uL (0-1.0); Monocytes % (A) 8 %; Neutrophils % (A) 52 %; Platelet Count 138 k/uL (150-450); RBC 3.19 m/uL (4.30-5.90); RDW 12.9 % (11.5-15.5); WBC 3.8 k/uL (3.8-10.6)
[2019-07-28 08:53] LABS: INR 1.1 (<1.2); Prothrombin Time 10.8 sec (9.0-12.0)
[2019-07-28 09:11] LABS: African American GFR (CKD) >90 (>60 ml/min/1.73 sqM); Anion Gap 4 mmol/L; Blood Urea Nitrogen 6 mg/dL (9-20); Calcium 8.3 mg/dL (8.4-10.2); Carbon Dioxide 26 mmol/L (22-30); Chloride 108 mmol/L (98-107); Glucose 92 mg/dL (74-99); Non-African American GFR(CKD) >90 (>60 ml/min/1.73 sqM); Potassium 3.7 mmol/L (3.5-5.1); Sodium 138 mmol/L (137-145)
[2019-07-28] MEDS ORDERED: PROPOFOL 10 MG/ML 20 ML VIAL IV ONE (10:38)
[2019-07-28] MEDS ORDERED: IV FLUID CONTINUATION 1,000 ML IV ONE (10:38)
--- NOTE | 2019-07-28 11:27 | P.PCN ---
Date of Procedure: 07/28/19 Description of Procedure: BRIEF HISTORY: 54-year-old male with a medical history significant for hypothyroidism, hypertension and GERD who presented due to complaints of abdominal pain and dark stool. The patient reports 2 hours of sharp right abdominal and right flank pain prior to presentation. He denies any prior episodes of similar complaints. He reports associated melena on 2 occasions described as dark colored stool, thick in consistency. Patient also reports some dizziness and lightheadedness with the episode. Denies any prior history of GI bleed. No NSAID use and he reports Tylenol use as needed for pain. Stool testing on presentation positive for occult blood. He reports his last colonoscopy approximately 2 years ago and essentially normal with the patient told he did have repeat colonoscopy in 10 years at that time. Patient was significant for EGD yesterday with findings of mild gastritis, gastric polyp and no evident source of bleeding. Hemoglobin subsequently fell. PROCEDURE PERFORMED: Colonoscopy with biopsy. PREOPERATIVE DIAGNOSIS: Anemia acute blood loss, melena. ESTIMATED BLOOD LOSS: Minimal. IV sedation per Anesthesia. PROCEDURE: After informed consent was obtained, the patient, was brought into the endoscopy unit. IV sedation was administered by Anesthesia under continuous monitoring. Digital rectal examination was normal. Initially the Olympus CF-190 flexible video colonoscope was then inserted in the rectum, gradually advanced into the cecum without any difficulty. Careful examination was performed as the scope was gradually being withdrawn. Ileocecal valve and the appendiceal orifice were visualized and appeared normal. The terminal ileum was intubated and appeared normal with biopsies taken Prep was excellent. Mucosa of the cecum, ascending colon, transverse colon, descending colon, sigmoid colon, and rectum appeared normal, with biopsies of the right and left colon taken. A few scattered diverticula noted in the sigmoid colon. Retroflexion was performed in the rectum and no lesions were seen. The patient tolerated the procedure well. IMPRESSION: Normal-appearing colon from rectum to cecum, with normal-appearing terminal ileum with random biopsies taken of the right colon and left colon and terminal ileum. Very mild sigmoid diverticulosis noted. No active bleeding, old blood or pathology to explain anemia and symptoms was seen. RECOMMENDATIONS: Findings of this examination were discussed with the patient. Await pathology from biopsies. Patient is agreeable to video capsule endoscopy which will be performed today. Nothing by mouth for now with clear liquid diet 2 hours after administration of capsule endoscopy and then regular diet 4 hours after administration.
[2019-07-28] MEDS ORDERED: SIMETHICONE 40 MG/0.6 ML DROPS 2,000 MG/30 ML BOTTLE PO ONE (13:30)
--- NOTE | 2019-07-28 14:43 | P.PN ---
Subjective Progress Note Date: 07/28/19 Principal diagnosis: Dark Tarry stools Patient is a 54-year-old male with GERD, hypertension, and hypothyroidism who presented to the emergency department secondary to abdominal pain and dark tarry stools. In the emergency department he underwent an extensive evaluation. His initial vital signs within normal limits. Initial laboratory analysis showed hemoglobin 12.2, PTT 20.8, sodium 132, BUN 37, glucose 153, and occult blood was positive. He had an additional dark tarry stool in the emergency department. Arrangements are made for admission for possible GI bleed. He was given IV PPI. GI was consulted.They recommended EGD which showed gastritis and a gastric polyp. Hemoglobin initially remained stable and then dropped a little. He underwent Colonoscopy on 07/28/19 which showed normal appearing colon. He was found to have mild sigmoid diverticulosis but no active bleding. Patient seen and examined at bedside. Had 2 episodes of bright red blood per re ctum when preforming colonoscopy prep last night. No chest pain, SOB, nausea, or vomiting. No lightheadedness or dizziness. Objective - Vital Signs Vital signs: Vital Signs Temp 98.2 F 07/28/19 07:00 Pulse 62 07/28/19 12:30 Resp 16 07/28/19 11:30 BP 110/69 07/28/19 12:30 Pulse Ox 97 07/28/19 11:30 Intake & Output 07/27/19 07/28/19 07/28/19 18:59 06:59 18:59 Intake Total 1125 1900 250 Balance 1125 1900 250 Intake: IV 250 250 Intake, IV Titration 875 1500 Amount Sodium Chloride 0.9% 1, 875 1500 000 ml @ 125 mls/hr IV . Q8H [facility] Rx#:[id number] Oral 400 Other: Voiding Method Toilet Toilet Toilet # Bowel Movements 1 - Exam General: non toxic, no distress, appears at stated age Derm: warm, dry Head: atraumatic, normocephalic, symmetric Eyes: EOMI, no lid lag, anicteric sclera Mouth: no lip lesion, mucus membranes dry Cardiovascular: S1S2 reg, no murmur, positive posterior tibial pulse bilateral, Lungs: CTA bilateral, no rhonchi, no rales , no accessory muscle use Abdominal: soft, nontender to palpation, no guarding, no appreciable organomegaly Ext: no gross muscle atrophy, no edema, no contractures Neuro: CN II-XI grossly intact, no focal neuro deficits Psych: Alert, oriented, appropriate affect - Labs CBC & Chem 7: 07/28/19 07:42 07/28/19 07:42 Labs: Abnormal Lab Results - Last 24 Hours (Table) 07/27/19 07/27/19 07/28/19 Range/Units 07:16 20:07 07:42 RBC 3.43 L 3.41 L 3.19 L (4.30-5.90) m/uL Hgb 10.2 L 10.6 L 9.5 L (13.0-17.5) gm/dL Hct 31.0 L 30.8 L 28.3 L (39.0-53.0) % Plt Count 130 L 138 L (150-450) k/uL Chloride (98-107) mmol/L BUN (9-20) mg/dL Calcium (8.4-10.2) mg/dL 07/28/19 Range/Units 07:42 RBC (4.30-5.90) m/uL Hgb (13.0-17.5) gm/dL Hct (39.0-53.0) % Plt Count (150-450) k/uL Chloride 108 H (98-107) mmol/L BUN 6 L (9-20) mg/dL Calcium 8.3 L (8.4-10.2) mg/dL Assessment and Plan Assessment: GI bleed with acute blood loss anemia and iron deficiency anemia - EGD with gastritis, colonoscopy with mild diverticulosis - video endoscopy today - follow HgB - GI Recs appreciated - IV PPI twice a day with plan for PO on discharge - Avoid NSAID-containing products - IV fluids - ferritin and iron studies consistent with iron deficiency anemia. Start oral iron therapy in AM. 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 DVT prophylaxis: SCDs Discussed with: Patient, nursing Anticipated discharge: in AM Anticipated discharge place: home A total of 25 minutes was spent on the care of this complex patient more than 50% of the time was spent in counseling and care coordination.
[2019-07-28] MEDS ORDERED: LEVOTHYROXINE 50 MCG TAB PO ONE (15:00)
[2019-07-29] MEDS: LEVOTHYROXINE 50 MCG TAB PO SCH (05:43)
[2019-07-29] MEDS ORDERED: PANTOPRAZOLE 40 MG TABLET PO SCH (07:30)
[2019-07-29] MEDS: CYANOCOBALAMIN 500 MCG TAB PO SCH (08:25)
[2019-07-29] MEDS: MULTIVITAMINS, THERA 1 EACH TAB PO SCH (08:26)
[2019-07-29] MEDS: VITAMIN E (DL,TOCOPHERYL ACET) 400 UNIT CAP PO SCH (08:26)
[2019-07-29] MEDS: lamoTRIgine 100 MG TAB PO SCH (08:26)
[2019-07-29] MEDS: VENLAFAXINE HCL ER 150 MG CAP PO SCH (08:26)
[2019-07-29] MEDS: SODIUM CHLORIDE 0.9% 1,000 ML IV SCH (08:28)
[2019-07-29 08:40] LABS: HCT 29.1 % (39.0-53.0); HGB 9.8 gm/dL (13.0-17.5); MCHC 33.7 g/dL (31.0-37.0); MCV 89.2 fL (80.0-100.0); Mean Platelet Volume 8.7; Platelet Count 154 k/uL (150-450); RBC 3.27 m/uL (4.30-5.90); RDW 13.2 % (11.5-15.5); WBC 4.9 k/uL (3.8-10.6)
[2019-07-29] MEDS ORDERED: LISINOPRIL 20 MG TAB PO SCH (09:00)
[2019-07-29 14:34] VITALS: BP 116/76; PULSE 88; RESP 16; TEMP 97.8
--- NOTE | 2019-07-29 16:39 | P.DS ---
Providers Date of admission: 07/28/19 14:57 Expected date of discharge: 07/29/19 Attending physician: Leonarda Verdin MD Consults: 07/26/19 04:21 Consult Physician Routine Consulting Provider: Denver Sandoval Consult Reason/Comments: GI Bleeding Do you want consulting provider notified?: Yes Primary care physician: Dm Brown Hospital Course: Discharge Diagnosis: GI bleed, likely internal hemorrhoid Acute blood loss anemia on iron deficiency anemia gastritis HTN Hypothyroidism Sleep work shift disorder Obstructive sleep apnea Hospital Course: Patient is a 54-year-old male with GERD, hypertension, and hypothyroidism who presented to the emergency department secondary to abdominal pain and dark tarry stools. In the emergency department he underwent an extensive evaluation. His initial vital signs within normal limits. Initial laboratory analysis showed hemoglobin 12.2, PTT 20.8, sodium 132, BUN 37, glucose 153, and occult blood was positive. He had an additional dark tarry stool in the emergency department. Arrangements are made for admission for possible GI bleed. He was given IV PPI. GI was consulted.They recommended EGD which showed gastritis and a gastric polyp. Hemoglobin initially remained stable and then dropped a little. He underwent Colonoscopy on 07/28/19 which showed normal appearing colon. He was found to have mild sigmoid diverticulosis but no active bleeding. He underwent Capsule endoscopy which was normal. His hemoglobin stabilized. He was not longer having bloody bowel movement and he was determined stable for discharge. He will take oral iron and increase his PPI dosing. He will follow with Dr. Sandoval. I suggest repeat ferritin testing in 4-6 weeks. He will follow with Dr. Brown in 2-3 days. Patient seen and examined at bedside. Feeling anxious about no cause. I explained that I feel he likely had a bleeding hemorrhoid and has sever iron deficiency anemia. I did suggest continued outpatient follow-up. He denies chest pain, SOB, nausea, or vomiting/ Vital signs reviewed and stable. General: non toxic, no distress, appears at stated age Derm: warm, dry Head: atraumatic, normocephalic, symmetric Eyes: EOMI, no lid lag, anicteric sclera Mouth: no lip lesion, mucus membranes moist Cardiovascular: S1S2 reg, no murmur, positive posterior tibial pulse bilateral, Lungs: CTA bilateral, no rhonchi, no rales , no accessory muscle use Abdominal: soft, nontender to palpation, no guarding, no appreciable organomegaly Ext: no gross muscle atrophy, no edema, no contractures Neuro: CN II-XI grossly intact, no focal neuro deficits Psych: Alert, oriented, appropriate affect A total of 25 minutes of time were spent preparing this complex discharge summary . Patient Condition at Discharge: Good Plan - Discharge Summary Discharge Rx Participant: No New Discharge Prescriptions: New RX: Pantoprazole [Protonix] 40 mg PO AC-BRKFST #30 tablet. Ferrous Sulfate [Slow Release Iron] 140 mg PO DAILY #30 tablet.er Continue RX: lamoTRIgine 100 mg PO BID RX: Lisinopril [Zestril] 20 mg PO DAILY RX: Levothyroxine Sodium [Synthroid] 50 mcg PO DAILY RX: Armodafinil 200 mg PO QAM RX: Cholecalciferol [Vitamin D3 (25 Mcg = 1000 Iu)] 5,000 unit PO DAILY RX: Multivitamins, Thera [Multivitamin (formulary)] 1 tab PO DAILY RX: Fish Oil/Dha/Epa [Fish Oil 1,200 mg Fish Oil] 1 cap PO DAILY RX: Vitamin E 400 unit PO DAILY RX: Venlafaxine HCl ER [Effexor XR] 150 mg PO DAILY RX: Tadalafil 20 mg PO DAILY PRN PRN Reason: E.D. RX: Cyanocobalamin (Vitamin B-12) [Vitamin B-12] 1,000 mcg PO DAILY Discontinued RX: Omeprazole 20 mg PO DAILY Discharge Medication List RX: Armodafinil 200 mg PO QAM 07/26/19 [History] RX: Cholecalciferol [Vitamin D3 (25 Mcg = 1000 Iu)] 5,000 unit PO DAILY 07/26/19 [History] RX: Cyanocobalamin (Vitamin B-12) [Vitamin B-12] 1,000 mcg PO DAILY 07/26/19 [History] RX: Fish Oil/Dha/Epa [Fish Oil 1,200 mg Fish Oil] 1 cap PO DAILY 07/26/19 [History] RX: Levothyroxine Sodium [Synthroid] 50 mcg PO DAILY 07/26/19 [History] RX: Lisinopril [Zestril] 20 mg PO DAILY 07/26/19 [History] RX: Multivitamins, Thera [Multivitamin (formulary)] 1 tab PO DAILY 07/26/19 [History] RX: Tadalafil 20 mg PO DAILY PRN 07/26/19 [History] RX: Venlafaxine HCl ER [Effexor XR] 150 mg PO DAILY 07/26/19 [History] RX: Vitamin E 400 unit PO DAILY 07/26/19 [History] RX: lamoTRIgine 100 mg PO BID 07/26/19 [History] Ferrous Sulfate [Slow Release Iron] 140 mg PO DAILY #30 tablet.er 07/29/19 [Rx] RX: Pantoprazole [Protonix] 40 mg PO AC-BRKFST #30 tablet. 07/29/19 [Rx] Follow up Appointment(s)/Referral(s): Dm Brown MD [Primary Care Provider] - 1-2 days Denver Sandoval MD [STAFF PHYSICIAN] - 1 Week Ambulatory/Diagnostic Orders: Miscellaneous Lab Order [LAB.AMB] Time Frame: 4 Weeks, Location: None Selected Activity/Diet/Wound Care/Special Instructions: Activity: as tolerated Diet: regular Special Instructions: Suggest repeat ferritin level in 4-6 weeks Discharge Disposition: HOME SELF-CARE
--- NOTE | 2019-07-30 06:27 | P.PN ---
Subjective Progress Note Date: 07/29/19 Principal diagnosis: Melena, anemia Patient is seen lying in bed with no further signs or symptoms of GI bleeding. Tolerating diet. No abdominal pain. Objective - Vital Signs Vital signs: Vital Signs Temp 97.8 F 07/29/19 14:33 Pulse 88 07/29/19 14:33 Resp 16 07/29/19 14:33 BP 116/76 07/29/19 14:33 Pulse Ox 98 07/29/19 14:33 Intake & Output 07/28/19 07/29/19 07/29/19 18:59 06:59 18:59 Intake Total 1250 1210 Balance 1250 1210 Intake: IV 250 Intake, IV Titration 1000 850 Amount Sodium Chloride 0.9% 1, 1000 850 000 ml @ 75 mls/hr IV . [id number] MARIA D Rx#:[id number] Oral 360 Other: Voiding Method Toilet Toilet Toilet # Voids 2 1 3 - Exam On physical examination, patient appears comfortable in no apparent distress. HEAD: Normocephalic, atraumatic. EYES: No scleral icterus. No conjunctival injection. MOUTH: No lesions, tongue midline. NECK: Trachea midline, no gross abnormalities. ABDOMEN: Soft, nontender to palpation. Bowel sounds are positive. No organomegaly. No guarding or rigidity. EXTREMITIES: No pedal edema. SKIN: No rashes, no jaundice. NEUROLOGIC: Alert and oriented x3. No focal deficits. - Labs CBC & Chem 7: 07/29/19 08:02 07/28/19 07:42 Labs: Abnormal Lab Results - Last 24 Hours (Table) 07/29/19 Range/Units 08:02 RBC 3.27 L (4.30-5.90) m/uL Hgb 9.8 L (13.0-17.5) gm/dL Hct 29.1 L (39.0-53.0) % Assessment and Plan (1) Melena Narrative/Plan: 54 yo male who presented to the hospital with complaints of abdominal pain and dark-colored stool. He did have stool testing which was positive for occult blood. Denies any prior history of GI bleed but does have a history of GERD on omeprazole therapy. No NSAID use. He did have a colonoscopy approximately 2 years ago which was essentially normal per his report. Did have a further episode of dark-colored stool after presentation but hemoglobin has remained stable at 12 from 12.2 on presentation. No anticoagulation use. Unclear etiology with differential including peptic ulcer disease, gastritis, esophagitis, AVM or other etiology. Status: Acute Code(s): K92.1 - MELENA SNOMED Code(s): 3415924 (2) Stool guaiac positive Status: Acute Code(s): R19.5 - OTHER FECAL ABNORMALITIES SNOMED Code(s): 17326218 Plan: Supportive care Okay for diet Nothing by mouth after midnight Continue Protonix 40 mg twice daily Iron studies ordered by primary team Avoid NSAID use We'll anticoagulation Plan for EGD, colonoscopy and video capsule endoscopy all negative for fresh blood, old blood or pathology to explain symptoms Okay for discharge when otherwise medically stable Thank you for allowing us to participate in the care of the patient
== END 2019-07-29 18:35 | disposition home or self-care (01) | DRG 394 ==
LOC: EC 02:28 → 4SSUR 04:24 → OBSVTOIN 07-28 14:57
PROVIDERS: ADMIT Internal Medicine; ATTEND Internal Medicine
PROC: 0DB98ZX Excision of Duodenum, Via Natural or Artificial Opening Endoscopic, Diagnostic (ICD-10-PCS; principal; 2019-07-27 13:05)
PROC: 0DB78ZX Excision of Stomach, Pylorus, Via Natural or Artificial Opening Endoscopic, Diagnostic (ICD-10-PCS; principal; 2019-07-27 13:05)
PROC: 0DB68ZX Excision of Stomach, Via Natural or Artificial Opening Endoscopic, Diagnostic (ICD-10-PCS; principal; 2019-07-27 13:05)
PROC: 0DBB8ZX Excision of Ileum, Via Natural or Artificial Opening Endoscopic, Diagnostic (ICD-10-PCS; 2019-07-28)
PROC: 0DBG8ZX Excision of Left Large Intestine, Via Natural or Artificial Opening Endoscopic, Diagnostic (ICD-10-PCS; 2019-07-28)
PROC: 0DBF8ZX Excision of Right Large Intestine, Via Natural or Artificial Opening Endoscopic, Diagnostic (ICD-10-PCS; 2019-07-28)
DX: K64.8 Other hemorrhoids (principal); D62 Acute posthemorrhagic anemia; D50.9 Iron deficiency anemia, unspecified; E03.9 Hypothyroidism, unspecified; F32.9 Major depressive disorder, single episode, unspecified; F41.9 Anxiety disorder, unspecified; G47.33 Obstructive sleep apnea (adult) (pediatric); I10 Essential (primary) hypertension; K21.9 Gastro-esophageal reflux disease without esophagitis; K29.70 Gastritis, unspecified, without bleeding; K31.7 Polyp of stomach and duodenum; K57.30 Diverticulosis of large intestine without perforation or abscess without bleeding; Z11.59 Encounter for screening for other viral diseases; Z79.890 Hormone replacement therapy; Z79.899 Other long term (current) drug therapy
CPT/HCPCS: 36415; 43239; 45380; 80048; 80053; 82272; 82728; 83540; 83550; 84484; 85025; 85027; 85610; 85730; 86850; 86900; 86901; 88305; 91110; 96374; 99285